=== PATIENT | male | born 1940 | race Caucasian/White ===

== ENCOUNTER 2019-09-01 14:41 | Inpatient (IN) | payer MEDICARE, BC ==
[2019-09-01 15:12] LABS: CHLORIDE,CL 104 mEq/L (98-106); SODIUM,NA 144 mEq/L (136-145)
[2019-09-01] MEDS ORDERED: Morphine 2 MG/ML SYRINGE IVPUSH PRN (15:41)
[2019-09-01] MEDS ORDERED: LORazepam 0.5 MG Tab PO PRN (15:45)
[2019-09-01] MEDS: Sodium Chloride 0.9% 1,000 ML IV SCH (15:57)
[2019-09-01] MEDS: Pantoprazole 40 MG Vial IVPUSH SCH (15:59)
[2019-09-01] MEDS: Ondansetron 4 MG/2 ML SDV IV PRN (16:02)
[2019-09-01] MEDS: Iopamidol 755 Mg/ML 100 ML Bottle IVPUSH ONE (16:42)
[2019-09-01 17:54] VITALS: BP 131/66; PULSE 54
[2019-09-01] MEDS ORDERED: Morphine 2 MG/ML SYRINGE ONE (18:20)
--- NOTE | 2019-09-01 20:35 | DISCH ---
ADMISSION DIAGNOSIS: Abdominal pain, acute. DISCHARGE DIAGNOSIS: 1. GASTRIC BEZOAR. 2. DISTAL GASTRIC OBSTRUCTION. HISTORY: Amandeep is an 79-year-old gentleman who presented to the clinic today to see Dr. Jensen Ceballos in regard to abdominal pain that started yesterday evening. He started having episodes of emesis and did notice that with eating symptoms did progressively worsen. Pain continued throughout the evening into today. He on arrival to the clinic did rate his pain 10/10 on the pain scale, felt that it was a pressure. The pain would start in the left upper quadrant epigastric region with no radiation. Dr. Ceballos did admit the patient to the hospital for acute abdominal pain with ordering of a CT scan pending results. HOSPITAL STAY: Amandeep had quite eventful hospital stay. He did have 2 episodes of emesis, which last one over an hour ago, currently he is feeling much better. Denies any discomfort presently. He is sitting up and does not appear to be in any distress, whatsoever. His vital signs have been stable. LABORATORY RESULTS: Grossly unremarkable. LFTs were within normal limits. Cardiac workup was negative. Gastric occult blood was actually positive. Hemoglobin was repeated and hemoglobin initially was 13.9. Did repeat after few hours, it dropped to 12.7. Otherwise, again vital signs have been stable. Current blood pressure is 131/66 with a pulse of 52, oxygen is 100% on room air, respiratory rate is 16, and patient is afebrile. Imaging report read by radiologist at [facility] does show: 1. A 7 cm circumscribed heterogeneous material in the distal stomach with upstream gastric distention. Findings are concerning for gastric bezoar. Primary distal gastric obstruction is difficult to exclude given the degree of redundancy and mass effect from the retained 7 cm material described above. Further endoscopic evaluation was recommended. 2. Biliary ductal dilation is mildly greater than expected for age. Relative obstruction and compression related to the distal gastric process is possible. 3. Focal prominence of the pancreatic head and uncinate process with a relative atrophy of the remainder of the pancreas. While this does not appear to represent the source of distal gastric obstruction, it is in close proximity. No mass visualized. Again, correlation with above recommended endoscopy may be necessary. This is per Dr. Ilda Lane, radiologist in [place]. The patient will be discharged via ALS to [facility] for further evaluation. Accepting physician is Dr. See, hospitalist at [facility]. The patient will remain n.p.o. en route. NG tube is being placed currently at this time by nursing staff. GREGORY/DELMY /[id number]
== END 2019-09-01 18:32 | DRG 395 ==
LOC: CC.FCMC 14:41 → CC.MS 15:26 → UNDOADMIN 15:26 → CC.MS 15:37
PROVIDERS: ADMIT Family Medicine; ATTEND Family Medicine
DX: T18.2XXA Foreign body in stomach, initial encounter (principal); N40.0 Benign prostatic hyperplasia without lower urinary tract symptoms; E78.5 Hyperlipidemia, unspecified; I10 Essential (primary) hypertension; E55.9 Vitamin D deficiency, unspecified; N52.9 Male erectile dysfunction, unspecified; M81.0 Age-related osteoporosis without current pathological fracture; E66.9 Obesity, unspecified; Z68.21 Body mass index [BMI] 21.0-21.9, adult
CPT/HCPCS: 36415; 74022; 74177; 80053; 81001; 82150; 82271; 84484; 85018; 85025; 86140; 93005; C9113; J2405; J7030; Q9967

== ENCOUNTER → 2020-11-18 | Day surgery (SDC) | payer MEDICARE, BC ==
[~2020-11-18] MED LIST: Lactated Ringers 1,000 ML IV SCH; Propofol 200 MG/20 ML SDV ONE; fentaNYL 100 MCG/2 ML SDV ONE
[2020-11-18 12:27] VITALS: BP 130/54; PULSE 55
--- NOTE | 2020-11-19 06:36 | OR ---
DATE OF OPERATION: 11/18/2020 PREOPERATIVE DIAGNOSIS: 1. HISTORY OF GASTRIC BEZOAR. 2. HISTORY OF COLON POLYPS. POSTOPERATIVE DIAGNOSIS: 1. HISTORY OF GASTRIC BEZOAR. 2. HISTORY OF COLON POLYPS. SURGEON: Jensen Ceballos MD PROCEDURE: 1. FULL-LENGTH ESOPHAGOGASTRODUODENOSCOPY WITH DARRYL. 2. SURVEILLANCE COLONOSCOPY WITH FORCEPS POLYP REMOVAL X1. ANESTHESIA: MAC. COMPLICATIONS: None. SPECIMEN: 1. Antral DARRYL. 2. Sessile polyp, proximal sigmoid colon, approximately 4 mm. FINDINGS: 1. Full-length diagnostic EGD. 2. Resolved gastric bezoar. 3. Full-length surveillance colonoscopy. 4. Mild sigmoid diverticulosis. 5. Small sessile polyp, proximal sigmoid colon. RECOMMENDATIONS: Followup for colonoscopy is on an as-needed basis only at this point. INDICATIONS: Amandeep was in for a routine exam. He has had polyps in the past, has a family history of colon cancer, and it has been just over 5 years since his last colonoscopy. He elected to have a followup scope because of a recent gastric bezoar. An EGD was done as well, as the patient does occasionally have some dyspepsia. DESCRIPTION OF PROCEDURE: The patient was prepped and draped, placed in the left lateral decubitus position. A lubricated Olympus gastroscope was inserted over a bite-block, advanced to cricopharyngeus area, and easily intubated into the esophagus. The esophageal lining was benign in its entire course. The Z- line was crisp and sharp, around 38 to 39 cm. No signs of distal esophagitis, stricturing, ulceration, or Hummel's changes. The scope was advanced into the stomach, through the pylorus, and into the second portion of the duodenum. This and the duodenal bulb were completely unremarkable. The scope was brought back into the stomach and retroflexed. The upper fundus and cardia were benign. Upon straightening, the rest of the fundus and antrum were completely benign. No signs of any peptic ulcer disease, polyp, mass, lesion, or otherwise. CLOtest was obtained. Air was suctioned. The scope was removed without complication. A lubricated Olympus colonoscope was inserted. Unfortunately, the patient had very poor prep. We were able to get way over into the right colon, past the hepatic flexure, and then we ran into a wall of stool. We could not proceed. He did have liquid stool filled with a lot of particulate matter throughout and certainly at least half the colon could not be visualized adequately. Upon withdrawal, the patient did have 1 small polyp that was found in the proximal sigmoid colon. It was removed with a forceps biopsy x2. He has had scattered diverticula through the sigmoid area, otherwise no other lesions were seen. Air was suctioned. The scope was removed without complication. I could not retroflex in the rectum due to the stool present. MARY/DELMY /[id number]
== END ==
LOC: CC.SDS 10:12
PROVIDERS: ATTEND Family Medicine
DX: Z12.11 Encounter for screening for malignant neoplasm of colon (principal); D12.5 Benign neoplasm of sigmoid colon; K57.30 Diverticulosis of large intestine without perforation or abscess without bleeding; N40.0 Benign prostatic hyperplasia without lower urinary tract symptoms; N52.9 Male erectile dysfunction, unspecified; E78.5 Hyperlipidemia, unspecified; I10 Essential (primary) hypertension; R20.2 Paresthesia of skin; E55.9 Vitamin D deficiency, unspecified; I34.0 Nonrheumatic mitral (valve) insufficiency; Z88.8 Allergy status to other drugs, medicaments and biological substances; Z79.899 Other long term (current) drug therapy; Z98.890 Other specified postprocedural states; Z87.891 Personal history of nicotine dependence
CPT/HCPCS: 43239; 45380; 87081; J2704; J3010; J7120; 00813; 88305; 99100

== ENCOUNTER 2024-01-12 16:28 | Emergency (ER) | payer MEDICARE, BC ==
[2024-01-12 16:28] VITALS: BP 146/54; PULSE 49
[2024-01-12] MEDS: oxyCODONE 5 MG Tab PO ONE (16:39)
[2024-01-12] MEDS: oxyCODONE 5 MG/5 ML Cup PO ONE (16:41)
[2024-01-12] MEDS ORDERED: Naloxone 2 MG/2 ML Syringe IVPUSH PRN (17:08)
[2024-01-12] MEDS: fentaNYL 50 MCG/ML SDV IVPUSH ONE ×2 (17:29→18:31)
== END 2024-01-12 18:45 ==
LOC: CC.ED 16:28
DX: S72.141A Displaced intertrochanteric fracture of right femur, initial encounter for closed fracture (principal); I10 Essential (primary) hypertension; Z88.1 Allergy status to other antibiotic agents; Z88.8 Allergy status to other drugs, medicaments and biological substances; Z79.899 Other long term (current) drug therapy; W00.0XXA Fall on same level due to ice and snow, initial encounter
CPT/HCPCS: 72192; 96374; 96376; 99284; A9270; J3010